=== PATIENT | male | born 1960 | race Caucasian/White ===

== ENCOUNTER → 2018-08-17 | Outpatient (CLI) | payer OTHER | LOC: CAT 08-12 09:35 | DX: Z13.6 Encounter for screening for cardiovascular disorders (principal) ==

== ENCOUNTER → 2018-08-31 | Outpatient (CLI) | payer OTHER ==
--- NOTE | ~2018-08-31 | EXE ---
[facility] [employer] [place] [address] STRESS ECHOCARDIOGRAM Name: BHAVYA IYER [id number] Admission: 08/31/18 Attend Phys: Patrick Matta, Discharge: Date of : 58 Date of Service: 08/31/18 1623 Report #: [id number] THIS REPORT FOR: //name// APPROVED REPORT Study performed: 08/31/2018 10:46:30 Exam: Stress Echocardiogram Indication: Hypertension Patient Location: Out-Patient Stress Nurse: Olive Polanco RN Room #: Echo lab 2 Status: routine Ht: 6 ft 0 in HR: 83 bpm BP: 144/96 mmHg Rhythm: NSR Medical History Medical History: HTN, Hyperlipidemia Cardiac Risk Factors: HTN, Hyperlipidemia Exercise History: Sedentary Procedure The patient underwent an Exercise Stress Test using the Alfredo Protocol. Blood pressure, heart rate, and EKG were monitored. An Echocardiogram was performed by wound care technician in four stages in quad fashion. At peak stress, four selected images were obtained and placed side by side with resting images for comparison. Stress Test Details Stress Test: Exercise stress testing was performed using a Alfredo protocol. HR Resting HR: 83 bpm Max Heart Rate (APMHR): 162 bpm Max HR Achieved: 164 bpm Target HR (85% APMHR): 137 bpm % of APMHR: 101 Recovery HR: 100 bpm HR response to stress: Normal HR response to stress BP Resting BP: 144/96 mmHg Max BP: 192/86 mmHg Recovery BP: 142/92 mmHg [facility] [address] [address] STRESS ECHOCARDIOGRAM Name: BHAVYA IYER Room #: REG [facility]#: [id number] Admission: 08/31/18 Attend Phys: Patrick Matta, Discharge: Date of : 58 Date of Service: 08/31/18 1623 Report #: [id number] Resting ECG: Sinus Rhythm Stress ECG: Sinus Tachycardia Arrhythmia: None Recovery ECG: Sinus Rhythm Clinical Reason for Termination: Maximal effort Exercise duration: 7 min 31 sec Highest Stage Achieved: Stage 3: 3.4 mph at 14% grade. Exercise capacity: 10.4 METs Overall Exercise Capacity for Age: Normal Stress ECG Conclusion 1. SUBJECTIVELY NEGATIVE FOR ISCHEMIA 2. ELECTROCARDIOGRAPHICALLY NEGATIVE FOR ISCHEMIA 3. SATISFACTORY FUNCTIONAL CAPACITY Pre-Stress Echo The resting Echocardiogram showed normal left ventricular contractility with an estimated Ejection Fraction of about >55%. Post-Stress Echo The stress Echocardiogram showed normal left ventricular contractility with an estimated Ejection Fraction of about 65-70%. Clinical Normal augmentation of myocardial wall segments using a 17 segment model. Conclusion Clinical Response: Non-ischemic Exercise Capacity: SATISFACTORY Stress ECG Response: Non-ischemic Stress Echo Images: Non-ischemic 1. LOW RISK STUDY No prior study available for comparison. Other Information Study Quality: Fair [facility] [address] [place] [address] STRESS ECHOCARDIOGRAM Name: BHAVYA IYER Room #: REG [facility].#: [id number] Admission: 08/31/18 Attend Phys: Patrick Matta, Discharge: Date of : 58 Date of Service: 08/31/181622 Report #: [id number] <Conclusion> 1. LOW RISK STUDY <ELECTRONICALLY SIGNED> By: Vic Bello MD 08/31/183 22 22 Vic Bello MD /INF
== END ==
LOC: CV 10:09
DX: I10 Essential (primary) hypertension (principal); E78.00 Pure hypercholesterolemia, unspecified; R93.1 Abnormal findings on diagnostic imaging of heart and coronary circulation; E78.5 Hyperlipidemia, unspecified

== ENCOUNTER → 2021-10-25 | Outpatient (CLI) | payer OTHER | LOC: MRI 07:50 | PROVIDERS: ATTEND Family Medicine | DX: M25.474 Effusion, right foot (principal); M19.071 Primary osteoarthritis, right ankle and foot; M79.671 Pain in right foot ==